=== PATIENT | female | born 1960 | race Caucasian/White ===

== ENCOUNTER → 2018-02-24 | Outpatient (CLI) | payer OTHER ==
[~2018-02-24] MED LIST: FAMO40TA49; FAMO40TA49 OR; FEXOFENADINE; NAPR-223; OMEP20TA44 OR; OMEPRAZOLE; PREMARIN; [UNRECOGNIZED DRUG - CODE]
== END | disposition home or self-care (01) ==
LOC: XY 09:42
DX: R10.11 Right upper quadrant pain (principal)
CPT/HCPCS: 78226; A9537